=== PATIENT | male | born 1985 | race Caucasian/White ===

== ENCOUNTER 2018-10-12 23:41 | Emergency (ER) | payer OTHER ==
[2018-10-12 23:55] VITALS: BP 106/71
[2018-10-13] MEDS ORDERED: TETANUS/DIPHTHERIA/PERTUSSIS 0.5 ML SYRINGE IM ONE (02:03)
--- NOTE | 2018-10-13 02:03 | ED Physician Documentation ---
PD HPI UPPER EXT INJURY - Stated complaint Stated Complaint: LAC LT HAND WEBBING - Chief complaint Chief Complaint: Laceration - History obtained from History obtained from: Patient - History of Present Illness Location: Left, Hand Type of injury: Laceration Where injury occurred: Home Timing - onset: Enter time (23:00), Today Timing - details: Abrupt onset Associated symptoms: No: Weakness, Numbness, Tingling, Swelling, Discolored - Additonal information Additional information: cutting open plastic package tonight using a knife; the knife slipped, causing left hand laceration. patient is right hand dominant Review of Systems Skin: reports: Laceration (s) Neurologic: denies: Focal weakness, Numbness PD PAST MEDICAL HISTORY - Past Medical History Past Medical History: No - Past Surgical History Past Surgical History: No - Allergies Allergies/Adverse Reactions: Allergies Allergy/AdvReac Type Severity Reaction Status Date / Time No Known Drug Allergies Allergy Verified 10/12/18 23:46 - Social History Does the pt smoke?: Yes Smoking Status: Current some day smoker Does the pt drink ETOH?: Yes Does the pt have substance abuse?: No - Immunizations Immunizations: TDAP >10years/unknown PD ED PE NORMAL - Vitals Vital signs reviewed: Yes - General General: Alert and oriented X 3, No acute distress, Well developed/nourished - Derm Derm: Normal color, Warm and dry - Extremities Extremities: No tenderness to palpate, Normal ROM s pain - Neuro Neuro: No motor deficit, No sensory deficit PD ED PE EXPANDED - Extremities DONNY UE/Hands Visual: 1 - laceration (1 cm length) Results - Vitals Vitals: Oxygen O2 Source Room air Procedures - Laceration (location) Hand left Length in cm: 1 Wound type: Linear, Into subcut fat, Clean Neurovascular status: Sensory intact, Motor intact, Vascular intact Tendon involvement: Tendon intact Anesthesia: Lidocaine 1% Wound Preparation: Chlorhexadine, Irrigated copiously NS Skin layer closure: Nylon, Running, Size #-0 - enter number (4-0) Other: Patient tolerated well, No complications, Neurovascular intact, Dressing applied, Tetanus UTD Complexity: Simple PD MEDICAL DECISION MAKING - ED course Complexity details: considered differential, d/w patient Departure - Departure Disposition: 01 Home, Self Care Clinical Impression: Laceration Condition: Good Instructions: ED Laceration Hand Follow-Up: [facility] [Provider Group] [facility] [Provider Group] Forms: Activity restrictions Discharge Date/Time: 10/13/18 02:49
[2018-10-13] MEDS ORDERED: LIDOCAINE 1% 2 ML VIAL SUBQ STA (02:09)
[2018-10-13] MEDS ORDERED: BACITRACIN OINT TOP STA (02:32)
== END 2018-10-13 02:49 | disposition home or self-care (01) ==
LOC: ED 23:41
DX: S61.412A Laceration without foreign body of left hand, initial encounter (principal); W26.0XXA Contact with knife, initial encounter; Y93.89 Activity, other specified; Y92.009 Unspecified place in unspecified non-institutional (private) residence as the place of occurrence of the external cause; Z23 Encounter for immunization; F17.200 Nicotine dependence, unspecified, uncomplicated
CPT/HCPCS: 12001; 90471; 90715; 99282; 99283; A9270

== ENCOUNTER 2023-01-03 16:04 | Outpatient (CLI) | payer BC | END 2023-01-03 16:05 | disposition home or self-care (01) | LOC: DI 16:04 | PROVIDERS: ATTEND Family Medicine | DX: Z53.9 Procedure and treatment not carried out, unspecified reason (principal) ==

== ENCOUNTER 2023-01-03 16:10 | Outpatient (CLI) | payer BC | END 2023-01-03 16:11 | disposition home or self-care (01) | LOC: DI 16:10 | PROVIDERS: ATTEND Family Medicine | DX: Z53.9 Procedure and treatment not carried out, unspecified reason (principal) ==

== ENCOUNTER 2023-01-03 16:14 | Outpatient (CLI) | payer BC ==
--- NOTE | 2023-01-03 18:32 | XRAY Report ---
PROCEDURE: Calcaneus RT INDICATIONS: HEEL PAIN,RIGHT TECHNIQUE: Two views of the calcaneus were acquired. COMPARISON: None FINDINGS: Bones: No fractures or dislocations. No suspicious bony lesions. Soft tissues: No suspicious calcifications. Achilles tendon appears normal. IMPRESSION: Unremarkable calcaneal radiographs Reviewed by: Jason Fenton MD on 01/03/2023 5:31 PM AKALESHA Approved by: Jason Fenton MD on 01/03/2023 5:31 PM AKDT Station ID: [id number]
== END 2023-01-03 16:15 | disposition home or self-care (01) ==
LOC: DI 16:14
PROVIDERS: ATTEND Registered Nurse
DX: M79.671 Pain in right foot (principal)

== ENCOUNTER 2023-04-13 12:39 | Outpatient (CLI) | payer OTHER, BC | END 2023-04-13 12:40 | disposition EMS.NT | LOC: EMS 12:39 | DX: S00.81XA Abrasion of other part of head, initial encounter (principal); R51.9 Headache, unspecified; V53.5XXA Driver of pick-up truck or van injured in collision with car, pick-up truck or van in traffic accident, initial encounter; Y92.414 Local residential or business street as the place of occurrence of the external cause; Y99.8 Other external cause status ==